=== PATIENT | male | born 1970 ===

== ENCOUNTER 2016-08-04 22:56 | Emergency (ER) | payer BC ==
[2016-08-04 23:10] VITALS: BMI 29.8
[2016-08-04 23:16] VITALS: BP 164/82; PULSE 82; RESP 17; TEMP 98.8; O2SAT 99
--- NOTE | 2016-08-04 23:25 | ED PDOC ---
Arrival/HPI - General Historian: Patient - General Chief Complaint: Wound Check Time Seen by Provider: 08/04/16 23:12 - History of Present Illness Narrative History of Present Illness (Text): 08/04/16 23:22 46 y/o male, pmh including DM, s/p rt. toe amputation and here for the gauze change. Pt. was drinking water at home, stated that the water spilled on the top of the gauze dressing, wants to have it change, no fever or chills, no headache or night sweat, no dizziness, no rash, no other medical or psychological complaints. (Morteza Forbes) Past Medical History - Provider Review Nursing Documentation Reviewed: Yes - Psychiatric Hx Substance Use: No - Surgical History Hx Orthopedic Surgery: Yes Family/Social History - Physician Review Nursing Documentation Reviewed: Yes Family/Social History: Unknown Family HX Smoking Status: no Hx Alcohol Use: No Hx Substance Use: No Allergies/Home Meds Allergies/Adverse Reactions: Allergies No Known Allergies Allergy (Verified 08/04/16 23:10) Home Medications: Home Meds Medication Instructions Recorded Confirmed Unobtainable 08/04/16 08/04/16 Review of Systems - Review of Systems Constitutional: absent: Fatigue, Fevers Eyes: absent: Vision Changes ENT: absent: Hearing Changes Respiratory: absent: SOB, Cough, Sputum Cardiovascular: absent: Chest Pain Gastrointestinal: absent: Abdominal Pain, Diarrhea, Nausea, Vomiting Musculoskeletal: absent: Arthralgias, Back Pain, Neck Pain, Joint Swelling, Myalgias Skin: absent: Rash, Pruritis, Skin Lesions, Laceration, Abscess, Ulcer, Cellulitis Neurological: absent: Headache, Dizziness, Focal Weakness, Gait Changes Psychiatric: absent: Anxiety, Depression, Suicidal Ideation Physical Exam Vital Signs Reviewed: Yes Temperature: Afebrile Blood Pressure: Hypertensive Pulse: Regular Respiratory Rate: Normal Appearance: Positive for: Well-Appearing, Non-Toxic, Comfortable Pain Distress: None Mental Status: Positive for: Alert and Oriented X 3 - Systems Exam Head: Present: Atraumatic, Normocephalic Pupils: Present: PERRL Extroacular Muscles: Present: EOMI Conjunctiva: Present: Normal Mouth: Present: Moist Mucous Membranes Neck: Present: Normal Range of Motion Respiratory/Chest: Present: Clear to Auscultation, Good Air Exchange. No: Respiratory Distress, Accessory Muscle Use Cardiovascular: Present: Regular Rate and Rhythm, Normal S1, S2. No: Murmurs Abdomen: Present: Normal Bowel Sounds. No: Tenderness, Distention, Peritoneal Signs Back: Present: Normal Inspection Upper Extremity: Present: Normal Inspection. No: Cyanosis, Edema Lower Extremity: Present: Normal Inspection, Other (Rt. foot visible gauze cling is old and soaked which I removed, gauze dressing is dry and clean with no active bleeding, no foul smell. ). No: Edema Neurological: Present: GCS=15, CN II-XII Intact, Speech Normal Skin: Present: Warm, Dry, Normal Color. No: Rashes Psychiatric: Present: Alert, Oriented x 3, Normal Insight, Normal Concentration Medical Decision Making ED Course and Treatment: 08/04/16 23:26 -old gauze cling removed and new gauze cling applied -There is no acute signs of infection or cellulitis on the wound. -Discharge home with education on follow up with your own pmd and green feed attendant within 2 days, return to the ER for any new or worsening signs or symptoms. ( Morteza Forbes) - PA / MAILROOM CLERK / Resident Statement MD/DO has reviewed & agrees with the documentation as recorded. Disposition/Present on Arrival - Present on Arrival Any Indicators Present on Arrival: No History of DVT/PE: No History of Uncontrolled Diabetes: No Urinary Catheter: No History of Decub. Ulcer: No History Surgical Site Infection Following: None - Disposition Have Diagnosis and Disposition been Completed?: Yes Disposition Time: 23:27 Patient Plan: Discharge - Disposition Diagnosis: Dressing change Disposition: HOME/ ROUTINE Condition: GOOD Additional Instructions: Discharge home with education on follow up with your own pmd and green feed attendant within 2 days, return to the ER for any new or worsening signs or symptoms. Referrals: [facility] at [facility] [place] [Outside] - Follow up with primary Musa Dias DPM [Staff Provider] - Follow up with primary Forms: WORK NOTE
== END 2016-08-04 23:55 | disposition home or self-care (01) ==
LOC: MERGE 22:56 → ED 22:56
DX: Z48.00 Encounter for change or removal of nonsurgical wound dressing (principal)